=== PATIENT | female | born 2005 | race Two or more races ===

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

== ENCOUNTER 2023-06-17 17:33 | Outpatient (CLI) | payer MEDICAID ==
[~2023-06-17 17:33] MED LIST changes: +LOPE2CAP PO; +ONDA8TAB13 PO
== END 2023-06-17 23:59 | disposition home or self-care (01) ==
LOC: RAD 17:33
PROVIDERS: ATTEND Family Medicine
DX: S99.912A Unspecified injury of left ankle, initial encounter (principal); X58.XXXA Exposure to other specified factors, initial encounter; Y93.89 Activity, other specified; Y92.89 Other specified places as the place of occurrence of the external cause; Y99.8 Other external cause status
CPT/HCPCS: 73610; 73630